=== PATIENT | female | born 1945 | race Caucasian/White ===

== ENCOUNTER 2025-01-27 09:19 | Outpatient (AMB) | payer OTHER, MEDICAID, SELFPAY ==
--- OUTSIDE RECORDS SUMMARY | 2025-01-27 09:35 | XMS_ITS | Encounter Summary ---
Author Organization [facility] Address [address] [place] [address] Care Team Providers Care Shipper And Receiving Name Role Phone Deuce Motley MD Unavailable [phone] Jaden Wilcox MD Primary Care Provider [phone] Litzy Angela END MAKER Unavailable [phone] Beth Chang RN Unavailable Jena Dickerson RN Unavailable [phone] Jaden Wilcox MD Unavailable Simin Pina END MAKER Unavailable Unavailable Jaden Wilcox MD Unavailable Vernon Heredia MD Unavailable [phone] Encounter Details Date Type Department Care Team (Late st Contact Info) Description 09/27/2020 Scanned Document [address] [place] [address] Jaden Wilcox MD [address] [place] [address] [address] [place], [place] [id number] Social History Tobacco Use Types Packs/Day Years Used Date Smoking Tobacco: Never Smokeless Tobacco: Never Alcohol Use Standard Drinks/Week Comments Yes 0 (1 standard drink = 0.6 oz pur e alcohol) Comments No Sex and Gender Information Value Date Recorded Sex Assigned at Female 01/22/2024 3:34 PM EDT Legal Sex Female 2:01 PM EDT Gender Identity Female 07/28/2022 9:33 AM EST Sexual Orientation Heterosexual (straight) 07/28 9:33 AM EST COVID-19 Exposure Response Date Recorded In the last month, have you been in contact with someone who was confirmed or suspected to have Coronavirus / COVID-19? No / Unsure 09/15/2020 8:31 AM EST documented as of this encounter Plan of Treatment Upcoming Encounters Date Type Department Care Team (Late st Contact Info) Description 02/28/2025 10:00 AM EDT Hospital Encounter [facility] Radiology [address] [place] [id number] August Appiah MD [address] [place] [address] [address] [place] [address] 03/21/2025 3:15 PM EDT Office Visit [facility] [address] [place] [id number] Jaden Wilcox MD [address] [place] [address] [address] [place] [address] 04/03/2025 9:30 AM EDT Office Visit [facility] Cutaneous Oncology [address] [place] [address] [address] [place] [address] Jett Koch MD [address] [facility] [address] [place] [address] documented as of this encounter Visit Diagnoses Not on filedocumented in this encounter Care Teams Shipper And Receiving Relationship Specialty Start Date End Date Jaden Wilcox MD [address] [place] [address] 1 [place] [address] PCP - General Internal Medicine 1/16/21 Jaden Wilcox MD [address] [place] [address] PCP - [employer] Medicare Attributed 08/31/21 01/28/22 Jaden Wilcox MD [address] [place] [address] PCP - [employer] Medicare Attributed 02/28/22 01/29/24 Deuce Motley MD Pulmonary Medicine 06/06/16 Litzy Angela LCSW [address] [place] [address] [employer] Clinical Social Work 01/01/21 02/17/22 Beth Chang, MIRNA [address] [facility] [place] [address] [employer] 01/16/21 09/03/21 Jena Dickerson, RN [address] [place] [phone] [employer] 09/02/21 01/21/22 Simin Pina END MAKER [address] [place] [address] [facility] Community Loan Underwriter 01/21/22 Vernon Heredia MD [address] [place] [address] Physician Infectious Disease 07/01/23 documented as of this encounter
[2025-01-27 09:45] VITALS: BMI 29.2
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
== END 2025-01-27 11:23 | disposition home or self-care (01) ==
LOC: HO.HNS 09:20
PROVIDERS: Visit Provider Neurological Surgery
DX: M51.369 Other intervertebral disc degeneration, lumbar region without mention of lumbar back pain or lower extremity pain (principal)
CPT/HCPCS: 99204

== ENCOUNTER 2025-01-27 09:19 | Outpatient (REF) | payer OTHER, MEDICAID, SELFPAY ==
--- NOTE | ~2025-01-27 | XR_ITS ---
CLINICAL HISTORY: M51.369 - Other intervertebral disc degeneration, lumbar region without ... --- Add itional Notes or Special Instructions: AP lateral flexion extension 4 views lumbar spine Comparison: None Findings: Normal vertebral body alignment. Alignment is maintained with flexion and extension positioning. No acute fractures or dislocation. There is multiple level degenerative disc and facet change. There is aortic calcification. IMPRESSION: No acute findings. This document has been electronically signed by: Arsalan Flores MD on 01/28/2025 09:47:25
== END 2025-01-27 09:20 | disposition home or self-care (01) ==
LOC: HO.HOSX 09:19
PROVIDERS: Visit Provider Neurological Surgery
DX: M51.369 Other intervertebral disc degeneration, lumbar region without mention of lumbar back pain or lower extremity pain (principal)
CPT/HCPCS: 72110

== ENCOUNTER → 2025-01-27 10:24 | Outpatient (BNV) | payer OTHER, MEDICAID, SELFPAY | PROVIDERS: Visit Provider Specialist | DX: M47.816 Spondylosis without myelopathy or radiculopathy, lumbar region (principal) | CPT/HCPCS: 72110 ==